=== PATIENT | female | born 1960 | race Caucasian/White ===

== ENCOUNTER 2017-07-04 14:48 | Emergency (ER) | payer MEDICARE ==
[~2017-07-04] VITALS: Ht 167.6 cm; Wt 85.8 kg
[2017-07-04 14:55] VITALS: BP 149/84
[2017-07-04] MEDS ORDERED: SODIUM CHLORIDE 0.9% 1,000ML IVBOLUS ONE (15:30)
[2017-07-04] MEDS ORDERED: SODIUM CHLORIDE FLUSH 10ML SYR IVF ONE (15:30)
[2017-07-04 15:45] LABS: HEMATOCRIT 39.6 % (34.6-47.8); HEMOGLOBIN 13.6 g/dL (11.7-16.4); WHITE BLOOD COUNT 6.7 x10^3/uL (3.4-10)
[2017-07-04 15:56] LABS: BLOOD UREA NITROGEN 19 mg/dL (7-18)
[2017-07-04] MEDS ORDERED: DICYCLOMINE 10 MG/ML, 2ML IM ONE (16:00)
[2017-07-04 16:21] LABS: ASPARTATE AMINO TRANSFERASE 23 U/L (15-37)
[2017-07-04] MEDS ORDERED: ONDANSETRON ODT 4 MG ONE (16:45)
[2017-07-04] MEDS ORDERED: OXYcodone/APAP 5/325MG TABLET ONE ×2 (16:46→16:48)
[2017-07-04] MEDS ORDERED: ONDANSETRON ODT 4 MG PO ONE (17:00)
[2017-07-04] MEDS ORDERED: OXYcodone/APAP 5/325MG TABLET PO ONE ×2 (17:00)
== END 2017-07-04 18:26 | disposition home or self-care (01) ==
LOC: ED 16:30
DX: K59.00 Constipation, unspecified (principal); J45.909 Unspecified asthma, uncomplicated; Z90.710 Acquired absence of both cervix and uterus
CPT/HCPCS: 36415; 74020; 80053; 81003; 84443; 85025; 87324; 89055; 99285; Q0162

== ENCOUNTER 2017-10-21 13:35 | Emergency (ER) | payer MEDICARE ==
[~2017-10-21] VITALS: Ht 167.6 cm; Wt 89.0 kg
[2017-10-21 13:37] VITALS: BP 136/84
[2017-10-21 15:03] LABS: RAPID INFLUENZA A Negative (Negative); RAPID INFLUENZA B Negative (Negative)
[2017-10-21] MEDS ORDERED: SODIUM CHLORIDE 0.9% 1,000ML IVBOLUS ONE (17:30)
[2017-10-21] MEDS ORDERED: METOCLOPRAMIDE 5 MG/ML, 2ML IVPush ONE (17:30)
[2017-10-21] MEDS ORDERED: KETOROLAC 30 MG/1 ML IVPush ONE (17:30)
[2017-10-21] MEDS ORDERED: DIPHENHYDRAMINE 50 MG/ML, 1ML IVPush ONE (17:30)
[2017-10-21] MEDS ORDERED: SODIUM CHLORIDE FLUSH 10ML SYR IVF ONE (17:30)
[2017-10-21] MEDS ORDERED: METOCLOPRAMIDE 5 MG/ML, 2ML ONE (18:04)
[2017-10-21] MEDS ORDERED: KETOROLAC 30 MG/1 ML ONE (18:04)
[2017-10-21] MEDS ORDERED: DIPHENHYDRAMINE 50 MG/ML, 1ML ONE (18:04)
[2017-10-21] MEDS ORDERED: SUMATRIPTAN 6MG/0.5ML SQ ONE ×2 (20:30→20:34)
== END 2017-10-21 21:07 | disposition home or self-care (01) ==
LOC: ED 14:59
DX: G43.911 Migraine, unspecified, intractable, with status migrainosus (principal); J06.9 Acute upper respiratory infection, unspecified; Z87.891 Personal history of nicotine dependence
CPT/HCPCS: 87400; 96372; 96374; 96375; 99284; J1200; J1885; J2765; J3030; J7030

== ENCOUNTER 2018-03-12 14:23 | Observation (INO) | payer MEDICARE ==
[~2018-03-12] VITALS: Ht 167.6 cm; Wt 94.4 kg
[2018-03-12 14:50] LABS: BASOPHILS # (AUTO) 0.02 x10^3/uL (0-0.1); BASOPHILS % (AUTO) 0 % (0-1); EOSINOPHILS # (AUTO) 0.18 x10^3/uL (0-0.4); EOSINOPHILS % (AUTO) 3 % (1-7); LYMPHOCYTES # (AUTO) 2.24 x10^3/uL (1-3.4); LYMPHOCYTES % (AUTO) 32 % (22-44); MD NO; MEAN CORPUSCULAR HEMOGLOBIN 30.2 pg (27.0-34.8); MEAN CORPUSCULAR HGB CONC 34.2 g/dL (32.4-35.8); MEAN CORPUSCULAR VOLUME 88.1 fL (80-100); MEAN PLATELET VOLUME 8.1 fL (7.4-10.4); MONOCYTES # (AUTO) 0.33 x10^3/uL (0.2-0.8); MONOCYTES % (AUTO) 5 % (2-9); NEUTROPHILS # (AUTO) 4.33 x10^3/uL (1.8-6.8); NEUTROPHILS % (AUTO) 61 % (42-75); PLATELET COUNT 247 x10^3/uL (130-400); RED BLOOD COUNT 4.56 x10^6/uL (3.82-5.3); RED CELL DISTRIBUTION WIDTH 12.9 % (9.6-15.2)
[2018-03-12 15:00] LABS: ALBUMIN 3.8 g/dL (3.4-5.0); ANION GAP 8 mmol/L (5-15); CALCIUM 8.7 mg/dL (8.5-10.1); CHLORIDE 112 mmol/L (98-107)
[2018-03-12 15:04] LABS: ALANINE AMINOTRANSFERASE 29 U/L (12-78); ALKALINE PHOSPHATASE 97 U/L (45-117); BILIRUBIN,TOTAL 0.4 mg/dL (0.2-1.0); CREATININE 1.34 mg/dL (0.55-1.02); TOTAL PROTEIN 7.5 g/dL (6.4-8.2)
[2018-03-12] MEDS ORDERED: TOPI100T24 PO (15:08)
[2018-03-12] MEDS ORDERED: TRAZ50TA18 PO (15:09)
[2018-03-12] MEDS ORDERED: RISP4TAB2 PO (15:09)
[2018-03-12] MEDS ORDERED: LEVO25TA4 PO (15:09)
[2018-03-12] MEDS ORDERED: DIAZ5TAB4 PO (15:09)
[2018-03-12] MEDS ORDERED: IBUP200C5 PO (15:10)
[2018-03-12] MEDS ORDERED: OXYC-302 PO (15:10)
[2018-03-12] MEDS ORDERED: PROM12.554 PR (15:11)
[2018-03-12 15:59] LABS: PROTHROMBIN TIME 10.4 Seconds (9.6-11.5)
[2018-03-12] MEDS ORDERED: PROM25TA10 PO (16:24)
[2018-03-12] MEDS ORDERED: MECL12.52 PO (16:24)
[2018-03-12] MEDS ORDERED: VENL37.58 PO (16:49)
[2018-03-12] MEDS ORDERED: OXYC15TA PO (16:49)
[2018-03-12] MEDS ORDERED: ENALAPRILAT 1.25 MG/ML, 2ML IVPush PRN (17:00)
[2018-03-12] MEDS ORDERED: BISACODYL 10 MG SUPP PR PRN (17:00)
[2018-03-12] MEDS ORDERED: ACETAMINOPHEN 325 MG TABLET PO PRN (17:00)
[2018-03-12] MEDS ORDERED: ENOXAPARIN 40 MG/0.4 ML SQ SCH (17:00)
[2018-03-12] MEDS ORDERED: ONDANSETRON ODT 4 MG PO PRN (17:00)
[2018-03-12] MEDS ORDERED: hydrALAzine 20 MG/ML, 1ML IVPush PRN (17:00)
[2018-03-12] MEDS ORDERED: ONDANSETRON 2MG/ML, 2ML IVPush PRN (17:00)
[2018-03-12] MEDS ORDERED: POLYETHYLENE GLYCOL 17 GM PACKET PO PRN (17:00)
[2018-03-12] MEDS ORDERED: MECLIZINE 12.5 MG TABLET PO PRN (18:00)
[2018-03-12] MEDS ORDERED: PROMETHAZINE 25MG TABLET PO PRN (18:00)
[2018-03-12 18:15] LABS: HEMOGLOBIN A1C 5.7 % (4.2-6.3)
[2018-03-12 19:20] VITALS: BP 119/80
[2018-03-12] MEDS ORDERED: TOPIRAMATE 25 MG TABLET ONE (21:10)
[2018-03-12] MEDS: LACTATED RINGERS 1,000 ML IV SCH (21:25)
[2018-03-12] MEDS: TOPIRAMATE 100 MG TABLET PO SCH (21:26)
[2018-03-12] MEDS: TRAZODONE 50MG TABLET PO SCH (21:26)
[2018-03-12] MEDS: DIAZEPAM 5 MG TABLET PO SCH (21:26)
[2018-03-12] MEDS: RISPERIDONE 2 MG TABLET PO SCH (21:26)
[2018-03-12] MEDS: OXYcodone/APAP 10/325MG TABLET PO PRN (21:26)
[2018-03-13 01:08] VITALS: BP 105/64
[2018-03-13] MEDS: LACTATED RINGERS 1,000 ML IV SCH (03:00)
[2018-03-13 04:12] VITALS: BP 119/80
[2018-03-13] MEDS: OXYcodone/APAP 10/325MG TABLET PO PRN ×3 (05:20→20:58)
[2018-03-13 05:44] LABS: BASOPHILS # (AUTO) 0.04 x10^3/uL (0-0.1); BASOPHILS % (AUTO) 1 % (0-1); EOSINOPHILS # (AUTO) 0.23 x10^3/uL (0-0.4); EOSINOPHILS % (AUTO) 4 % (1-7); LYMPHOCYTES % (AUTO) 28 % (22-44); MD NO; MEAN CORPUSCULAR HEMOGLOBIN 29.8 pg (27.0-34.8); MEAN CORPUSCULAR HGB CONC 34.1 g/dL (32.4-35.8); MEAN CORPUSCULAR VOLUME 87.3 fL (80-100); MEAN PLATELET VOLUME 8.3 fL (7.4-10.4); MONOCYTES # (AUTO) 0.39 x10^3/uL (0.2-0.8); MONOCYTES % (AUTO) 6 % (2-9); NEUTROPHILS # (AUTO) 3.92 x10^3/uL (1.8-6.8); NEUTROPHILS % (AUTO) 62 % (42-75); PLATELET COUNT 215 x10^3/uL (130-400); RED BLOOD COUNT 4.48 x10^6/uL (3.82-5.3); RED CELL DISTRIBUTION WIDTH 13.1 % (9.6-15.2)
[2018-03-13 05:47] LABS: CHLORIDE 112 mmol/L (98-107)
[2018-03-13 06:02] LABS: ALANINE AMINOTRANSFERASE 26 U/L (12-78); ALBUMIN 3.5 g/dL (3.4-5.0); ALKALINE PHOSPHATASE 90 U/L (45-117); ANION GAP 9 mmol/L (5-15); BILIRUBIN,TOTAL 0.4 mg/dL (0.2-1.0); CALCIUM 9.4 mg/dL (8.5-10.1); CHOL/HDL RATIO 3.4; CHOLESTEROL, TOTAL 134 mg/dL (140-239); CREATININE 1.42 mg/dL (0.55-1.02); FREE T4 (FREE THYROXINE) 1.08 ng/dL (0.76-1.46); HDL CHOL % 29 % (28-40); HDL CHOLESTEROL (DIRECT) 39 mg/dL (40-60); LDL CHOLESTEROL,CALCULATED 60 mg/dL (54-169); LDL/HDL RATIO 1.5 (0.5-3.0); TOTAL PROTEIN 6.8 g/dL (6.4-8.2); TRIGLYCERIDES 173 mg/dL (50-200); VLDL CHOLESTEROL 35 mg/dL (0-25)
[2018-03-13 06:37] VITALS: BP 130/84
[2018-03-13] MEDS ORDERED: TOPIRAMATE 25 MG TABLET ONE (08:01)
[2018-03-13] MEDS: VENLAFAXINE XR 37.5MG CAP.ER.24H PO SCH (08:11)
[2018-03-13] MEDS: RISPERIDONE 2 MG TABLET PO SCH ×2 (08:12→08:35)
[2018-03-13] MEDS: SENNA/DOCUSATE TABLET PO SCH (08:15)
[2018-03-13] MEDS: TOPIRAMATE 100 MG TABLET PO SCH ×2 (08:31→20:59)
[2018-03-13] MEDS: DIAZEPAM 5 MG TABLET PO SCH ×2 (08:33→20:58)
[2018-03-13] MEDS: LEVOTHYROXINE 25 MCG TABLET PO SCH (08:49)
[2018-03-13 14:59] VITALS: BP 115/72
[2018-03-13] MEDS ORDERED: LIDOCAINE-MPF 1%, 2ML ONE (15:48)
[2018-03-13] MEDS ORDERED: LIDOCAINE 2%, 20ML ONE (17:09)
[2018-03-13] MEDS ORDERED: MECLIZINE 12.5 MG TABLET PO PRN (18:30)
[2018-03-13 18:54] VITALS: BP 116/74
[2018-03-13] MEDS: TRAZODONE 50MG TABLET PO SCH (20:58)
[2018-03-14 00:10] VITALS: BP 109/71
[2018-03-14] MEDS: OXYcodone/APAP 10/325MG TABLET PO PRN ×2 (04:59→13:40)
[2018-03-14] MEDS: LEVOTHYROXINE 25 MCG TABLET PO SCH (05:00)
[2018-03-14 05:37] LABS: CALCIUM 9.3 mg/dL (8.5-10.1); CHLORIDE 112 mmol/L (98-107)
[2018-03-14 05:40] LABS: ANION GAP 9 mmol/L (5-15); CREATININE 1.43 mg/dL (0.55-1.02)
[2018-03-14 08:24] VITALS: BP 112/75
[2018-03-14] MEDS: TOPIRAMATE 100 MG TABLET PO SCH (08:51)
[2018-03-14] MEDS: VENLAFAXINE XR 37.5MG CAP.ER.24H PO SCH (08:51)
[2018-03-14] MEDS: RISPERIDONE 2 MG TABLET PO SCH (08:51)
[2018-03-14] MEDS: SENNA/DOCUSATE TABLET PO SCH (08:52)
[2018-03-14] MEDS: DIAZEPAM 5 MG TABLET PO SCH (08:52)
[2018-03-14 14:30] VITALS: BP 114/79
== END 2018-03-14 16:00 | disposition home or self-care (01) ==
LOC: ED 16:38 → INTOOBSV 16:39 → EDIP 16:39 → ED 16:52 → 4WST 18:45
PROVIDERS: ADMIT Family Medicine; ATTEND Family Medicine
DX: R55 Syncope and collapse (principal); R51 Headache; F31.9 Bipolar disorder, unspecified
CPT/HCPCS: 36415; 62270; 70450; 70544; 71046; 80048; 80053; 80061; 83036; 84439; 84443; 85025; 85610; 85730; 93005; 93306; 93880; 96360; 96361; 97162; 97166; 99285; G0378; G8978; G8979; G8980; J3490; J7120

== ENCOUNTER 2018-04-03 08:12 | Emergency (ER) | payer MEDICARE ==
[~2018-04-03] VITALS: Ht 167.6 cm; Wt 95.0 kg
[~2018-04-03 08:12] MED LIST: DIAZ5TAB4 PO; IBUP200C5 PO; LEVO25TA4 PO; MECL12.52 PO; OXYC-302 PO; OXYC15TA PO; PROM12.554 PR; PROM25TA10 PO; RISP4TAB2 PO; TOPI100T24 PO; TRAZ50TA18 PO; VENL37.58 PO
[2018-04-03] MEDS ORDERED: ASPIRIN 81 MG TABLET CHEW PO ONE (09:00)
[2018-04-03] MEDS ORDERED: ONDANSETRON ODT 4 MG PO ONE (09:00)
[2018-04-03] MEDS ORDERED: ASPIRIN 81 MG TABLET CHEW ONE (09:08)
[2018-04-03] MEDS ORDERED: ONDANSETRON ODT 4 MG ONE (09:08)
[2018-04-03] MEDS ORDERED: LEVO100T5 PO (09:26)
[2018-04-03 09:29] LABS: BASOPHILS # (AUTO) 0.02 x10^3/uL (0-0.1); BASOPHILS % (AUTO) 0 % (0-1); EOSINOPHILS # (AUTO) 0.22 x10^3/uL (0-0.4); EOSINOPHILS % (AUTO) 3 % (1-7); LYMPHOCYTES # (AUTO) 1.64 x10^3/uL (1-3.4); LYMPHOCYTES % (AUTO) 25 % (22-44); MD NO; MEAN CORPUSCULAR HEMOGLOBIN 29.6 pg (27.0-34.8); MEAN CORPUSCULAR HGB CONC 34.1 g/dL (32.4-35.8); MEAN CORPUSCULAR VOLUME 86.6 fL (80-100); MEAN PLATELET VOLUME 8.3 fL (7.4-10.4); MONOCYTES # (AUTO) 0.37 x10^3/uL (0.2-0.8); MONOCYTES % (AUTO) 6 % (2-9); NEUTROPHILS # (AUTO) 4.42 x10^3/uL (1.8-6.8); NEUTROPHILS % (AUTO) 66 % (42-75); PLATELET COUNT 243 x10^3/uL (130-400); RED BLOOD COUNT 4.65 x10^6/uL (3.82-5.3); RED CELL DISTRIBUTION WIDTH 13.2 % (9.6-15.2)
[2018-04-03 09:38] LABS: ALANINE AMINOTRANSFERASE 26 U/L (12-78); ALBUMIN 3.4 g/dL (3.4-5.0); ANION GAP 7 mmol/L (5-15); CHLORIDE 110 mmol/L (98-107)
[2018-04-03 09:43] LABS: ALKALINE PHOSPHATASE 110 U/L (45-117); BILIRUBIN,TOTAL 0.4 mg/dL (0.2-1.0); CREATININE 1.44 mg/dL (0.55-1.02); TOTAL PROTEIN 7.2 g/dL (6.4-8.2); TROPONIN I < 0.015 ng/mL (0.000-0.045)
[2018-04-03] MEDS ORDERED: MORPHINE SULFATE 4 MG/ML, 1ML ONE ×2 (10:11→12:44)
[2018-04-03] MEDS: MORPHINE SULFATE 4 MG/ML, 1ML IVPush PRN ×2 (11:09→12:46)
[2018-04-03 13:20] VITALS: BP 131/77
== END 2018-04-03 14:00 | disposition home or self-care (01) ==
LOC: ED 09:10
DX: R06.00 Dyspnea, unspecified (principal); G43.909 Migraine, unspecified, not intractable, without status migrainosus; Z87.891 Personal history of nicotine dependence
CPT/HCPCS: 36415; 71045; 80053; 83880; 84484; 85025; 85379; 93005; 96374; 96376; 99285; Q0162

== ENCOUNTER 2018-11-09 12:14 | Emergency (ER) | payer MEDICARE ==
[~2018-11-09] VITALS: Ht 167.6 cm; Wt 94.8 kg
[~2018-11-09 12:14] MED LIST changes: +IBUP-1623 PO; -IBUP200C5 PO; +LEVO100T5 PO; -TRAZ50TA18 PO; +TRAZ50TA66 PO
--- NOTE | 2018-11-09 12:21 | NUR ---
PT AMBULATED TO ROOM WITH TECH. STEADY GAIT.
--- NOTE | 2018-11-09 12:23 | NUR ---
PT PRESENTED TO ED D/T LOWER ABD PAIN SINCE YESTERDAY. PT STATES HAVE BEEN DEALING WITH THIS ISSUE FOR A "COUPLE MONTHS NOW." PT STATES INCREASED BLOATING. +N/V/D FOR "MONTHS NOW."
[2018-11-09] MEDS ORDERED: SUCR1TAB PO (12:27)
[2018-11-09] MEDS ORDERED: PANT20TA3 PO (12:27)
--- NOTE | 2018-11-09 12:46 | NUR ---
RN PROVIDED PT WITH URINE COLLECTION CUP. PT TO AMBULATE TO RESTROOM AFTER BLOOD DRAW.
[2018-11-09 12:57] LABS: BASOPHILS # (AUTO) 0.05 x10^3/uL (0-0.1); BASOPHILS % (AUTO) 1 % (0-1); EOSINOPHILS # (AUTO) 0.22 x10^3/uL (0-0.4); EOSINOPHILS % (AUTO) 3 % (1-7); LYMPHOCYTES # (AUTO) 2.63 x10^3/uL (1-3.4); LYMPHOCYTES % (AUTO) 34 % (22-44); MD NO; MEAN CORPUSCULAR HEMOGLOBIN 30.6 pg (27.0-34.8); MEAN CORPUSCULAR HGB CONC 34.2 g/dL (32.4-35.8); MEAN CORPUSCULAR VOLUME 89.6 fL (80-100); MEAN PLATELET VOLUME 7.9 fL (7.4-10.4); MONOCYTES # (AUTO) 0.59 x10^3/uL (0.2-0.8); MONOCYTES % (AUTO) 8 % (2-9); NEUTROPHILS # (AUTO) 4.16 x10^3/uL (1.8-6.8); NEUTROPHILS % (AUTO) 54 % (42-75); PLATELET COUNT 218 x10^3/uL (130-400); RED BLOOD COUNT 4.66 x10^6/uL (3.82-5.3); RED CELL DISTRIBUTION WIDTH 12.4 % (9.6-15.2)
[2018-11-09] MEDS ORDERED: ONDANSETRON 2MG/ML, 2ML ONE (12:58)
[2018-11-09] MEDS ORDERED: MORPHINE SULFATE 4 MG/ML, 1ML ONE (12:58)
[2018-11-09] MEDS ORDERED: FAMOTIDINE 20 MG/2 ML ONE (12:58)
[2018-11-09] MEDS ORDERED: SODIUM CHLORIDE FLUSH 10ML SYR IVF ONE (13:00)
[2018-11-09] MEDS ORDERED: FAMOTIDINE 20 MG/2 ML IVP ONE (13:00)
[2018-11-09] MEDS ORDERED: ONDANSETRON 2MG/ML, 2ML IVPush ONE (13:00)
[2018-11-09] MEDS ORDERED: MORPHINE SULFATE 4 MG/ML, 1ML IVPush PRN (13:00)
[2018-11-09 13:06] LABS: MICROSCOPIC AUTO
[2018-11-09 13:07] LABS: CULTURE INDICATED? YES
[2018-11-09 13:07] LABS: ALANINE AMINOTRANSFERASE 20 U/L (12-78); ALBUMIN 3.5 g/dL (3.4-5.0); ANION GAP 8 mmol/L (5-15); CALCIUM 8.9 mg/dL (8.5-10.1); CHLORIDE 108 mmol/L (98-107); CREATININE 1.42 mg/dL (0.55-1.02)
--- NOTE | 2018-11-09 13:08 | NUR ---
PT MEDICATED FOR 10/10 LOWER ABD PAIN.
[2018-11-09 13:10] LABS: ALKALINE PHOSPHATASE 108 U/L (45-117); BILIRUBIN,TOTAL 0.2 mg/dL (0.2-1.0); TOTAL PROTEIN 7.3 g/dL (6.4-8.2)
[2018-11-09] MEDS ORDERED: OMNIPAQUE 350 MG/ML, 100ML BOTTLE ONE (13:34)
--- NOTE | 2018-11-09 13:34 | NUR ---
PT IN RADIOLOGY.
[2018-11-09 13:57] VITALS: BP 115/69
--- NOTE | 2018-11-09 14:13 | NUR ---
PT BEING DISCHARGED HOME IN A STABLE CONDITION. PIV WAS REMOVED WITH TIP INTACT. DC INSTRUCTIONS WERE DISCUSSED WITH PT. PT VERBALIZED UNDERSTANDING. NO FURTHER QUESTIONS OR CONCERNS WERE EXPRESSED AT THAT TIME. PT AMBULATED WITH RN TO DC DESK. STEADY GAIT.
== END 2018-11-09 14:15 | disposition home or self-care (01) ==
LOC: ED 12:59
DX: G89.29 Other chronic pain (principal); R10.13 Epigastric pain; R10.30 Lower abdominal pain, unspecified; G43.909 Migraine, unspecified, not intractable, without status migrainosus
CPT/HCPCS: 36415; 74177; 80053; 81001; 83690; 85025; 87086; 96374; 96375; 99284; J2405; J3490; Q9967

== ENCOUNTER 2018-12-26 22:02 | Emergency (ER) | payer MEDICARE ==
[~2018-12-26] VITALS: Ht 167.6 cm; Wt 92.0 kg
[~2018-12-26 22:02] MED LIST changes: +PANT20TA3 PO; +SUCR1TAB PO
[2018-12-26 23:24] LABS: BASOPHILS # (AUTO) 0.01 x10^3/uL (0-0.1); BASOPHILS % (AUTO) 0 % (0-1); EOSINOPHILS # (AUTO) 0.22 x10^3/uL (0-0.4); EOSINOPHILS % (AUTO) 4 % (1-7); LYMPHOCYTES % (AUTO) 39 % (22-44); MD NO; MEAN CORPUSCULAR HEMOGLOBIN 31.2 pg (27.0-34.8); MEAN CORPUSCULAR HGB CONC 34.7 g/dL (32.4-35.8); MONOCYTES # (AUTO) 0.33 x10^3/uL (0.2-0.8); MONOCYTES % (AUTO) 5 % (2-9); NEUTROPHILS # (AUTO) 3.33 x10^3/uL (1.8-6.8); NEUTROPHILS % (AUTO) 52 % (42-75); PLATELET COUNT 225 x10^3/uL (130-400); RED BLOOD COUNT 4.41 x10^6/uL (3.82-5.3)
[2018-12-26 23:26] LABS: ALANINE AMINOTRANSFERASE 19 U/L (12-78); ALBUMIN 3.8 g/dL (3.4-5.0); ANION GAP 5 mmol/L (5-15); CALCIUM 8.9 mg/dL (8.5-10.1); CHLORIDE 110 mmol/L (98-107); CREATININE 1.53 mg/dL (0.55-1.02)
[2018-12-26 23:31] LABS: ALKALINE PHOSPHATASE 95 U/L (45-117); BILIRUBIN,TOTAL 0.3 mg/dL (0.2-1.0); TOTAL PROTEIN 7.4 g/dL (6.4-8.2); TROPONIN I < 0.015 ng/mL (0.000-0.045)
[2018-12-26] MEDS ORDERED: KETOROLAC 30 MG/1 ML ONE (23:59)
[2018-12-26] MEDS ORDERED: DIPHENHYDRAMINE 25 MG CAPSULE ONE (23:59)
[2018-12-26] MEDS ORDERED: ONDANSETRON ODT 4 MG ONE (23:59)
[2018-12-27] MEDS ORDERED: KETOROLAC 30 MG/1 ML IM ONE
[2018-12-27] MEDS ORDERED: DIPHENHYDRAMINE 25 MG CAPSULE PO ONE
[2018-12-27] MEDS ORDERED: ONDANSETRON ODT 4 MG PO ONE
[2018-12-27 00:06] VITALS: BP 110/65
== END 2018-12-27 00:08 | disposition home or self-care (01) ==
LOC: ED 23:00
DX: R55 Syncope and collapse (principal); R42 Dizziness and giddiness; G43.909 Migraine, unspecified, not intractable, without status migrainosus; Z87.891 Personal history of nicotine dependence
CPT/HCPCS: 36415; 71045; 80053; 84484; 85025; 93005; 96372; 99284; J1885; Q0162; Q0163

== ENCOUNTER 2019-02-26 11:46 | Emergency (ER) | payer MEDICARE ==
[~2019-02-26] VITALS: Ht 167.6 cm; Wt 96.0 kg
[2019-02-26 11:49] VITALS: BP 145/80
[2019-02-26] MEDS ORDERED: OXYcodone/APAP 5/325MG TABLET ONE (12:56)
[2019-02-26] MEDS ORDERED: OXYcodone/APAP 5/325MG TABLET PO ONE (13:00)
== END 2019-02-26 13:09 | disposition home or self-care (01) ==
LOC: ED 13:03
DX: S83.92XA Sprain of unspecified site of left knee, initial encounter (principal); G43.909 Migraine, unspecified, not intractable, without status migrainosus; Z87.891 Personal history of nicotine dependence; W01.0XXA Fall on same level from slipping, tripping and stumbling without subsequent striking against object, initial encounter; Y93.01 Activity, walking, marching and hiking; Y92.89 Other specified places as the place of occurrence of the external cause; Y99.8 Other external cause status
CPT/HCPCS: 99283

== ENCOUNTER → 2020-03-30 | Outpatient (CLI) | payer MEDICARE ==
[~2020-03-30] MED LIST changes: -MECL12.52 PO; +MECL12.581 PO; -OXYC15TA PO; +OXYC15TA3 PO
== END | disposition home or self-care (01) ==
LOC: RAD 14:37
PROVIDERS: ATTEND Orthopaedic Surgery
DX: M79.662 Pain in left lower leg (principal)

== ENCOUNTER 2020-04-17 14:22 | Outpatient (CLI) | payer MEDICARE ==
[~2020-04-17 14:22] MED LIST changes: -PANT20TA3 PO; +PANT20TA4 PO
== END 2020-04-17 23:59 | disposition home or self-care (01) ==
LOC: RAD 14:22
PROVIDERS: ATTEND Psychiatry & Neurology Neurology
DX: H53.2 Diplopia (principal); R42 Dizziness and giddiness
CPT/HCPCS: 70544

== ENCOUNTER 2020-06-04 19:51 | Emergency (ER) | payer MEDICARE ==
[~2020-06-04] VITALS: Ht 167.6 cm; Wt 97.0 kg
[~2020-06-04 19:51] MED LIST changes: +PANT20TA3 PO; -PANT20TA4 PO
--- NOTE | 2020-06-04 20:03 | NUR ---
EKG DONE IN TRIAGE.
--- NOTE | 2020-06-04 20:42 | NUR ---
FIRST CONTACT WITH PT. PT SITTING UP IN [facility], NAD NOTED. AWAKE/ALERT. PT REPOTS ABD DISTENTION, LLQ ABD "CRAMPING" PAIN, AND CONSTIPATION X FIVE DAYS. HX OF IBS WITH SIMILAR S/S. PT REPORTS CONSTIPATION DESPITE DIET CHANGE, SUPPLEMENTATION, AND ENEMA. ENEMA TODAY WITH SMALL BOWEL MOVEMENT RESULT. PT REPORTS TAKING OPIOIDS REGULARLY FOR CHRONIC BACK PAIN. DENIES CP/SOB/DYSRIA/N/V/FEVER/BLOOD IN EMESIS OR STOOL. BP/SPO2 MONITORING IN PLACE. VS UNREMARKABLE. SO AT BEDSIDE.
--- NOTE | 2020-06-04 21:15 | NUR ---
PT AMBULATED STEADILY TO BATHROOM USING OWN WALKER. UA PROVIDED. AWAITING ERP EVAL AND ORDERS.
[2020-06-04] MEDS ORDERED: SODIUM CHLORIDE FLUSH 10ML SYR IVF ONE (22:00)
[2020-06-04] MEDS ORDERED: METHYLNALTREXONE 12 MG/0.6 ML SYR SQ STA (22:10)
[2020-06-04 22:16] LABS: MICROSCOPIC AUTO
[2020-06-04] MEDS ORDERED: METHYLNALTREXONE 12 MG/0.6 ML SYR SQ ONE (22:20)
[2020-06-04] MEDS ORDERED: HYDROcodone/APAP 5/325 TABLET ONE (22:20)
[2020-06-04] MEDS ORDERED: HYDROcodone/APAP 5/325 TABLET PO ONE (22:30)
[2020-06-04] MEDS ORDERED: ONDANSETRON ODT 4 MG ONE (22:38)
[2020-06-04 22:40] LABS: BASOPHILS # (AUTO) 0.02 x10^3/uL (0-0.1); BASOPHILS % (AUTO) 0 % (0-1); EOSINOPHILS # (AUTO) 0.19 x10^3/uL (0-0.4); EOSINOPHILS % (AUTO) 3 % (1-7); LYMPHOCYTES # (AUTO) 1.73 x10^3/uL (1-3.4); LYMPHOCYTES % (AUTO) 24 % (22-44); MD NO; MEAN CORPUSCULAR HEMOGLOBIN 30.3 pg (27.0-34.8); MEAN CORPUSCULAR HGB CONC 33.6 g/dL (32.4-35.8); MEAN CORPUSCULAR VOLUME 90.3 fL (80-100); MEAN PLATELET VOLUME 7.8 fL (7.4-10.4); MONOCYTES # (AUTO) 0.44 x10^3/uL (0.2-0.8); MONOCYTES % (AUTO) 6 % (2-9); NEUTROPHILS # (AUTO) 4.74 x10^3/uL (1.8-6.8); NEUTROPHILS % (AUTO) 67 % (42-75); PLATELET COUNT 273 x10^3/uL (130-400); RED BLOOD COUNT 4.38 x10^6/uL (3.82-5.3); RED CELL DISTRIBUTION WIDTH 13.9 % (9.6-15.2)
[2020-06-04 22:41] VITALS: BP 143/79
--- NOTE | 2020-06-04 22:41 | NUR ---
PT CO NAUSEA. MEDICATED PER ORDER
[2020-06-04 22:48] LABS: ALANINE AMINOTRANSFERASE 37 U/L (12-78); ALBUMIN 3.6 g/dL (3.4-5.0); ANION GAP 5 mmol/L (5-15); CALCIUM 9.2 mg/dL (8.5-10.1); CHLORIDE 109 mmol/L (98-107); CREATININE 1.01 mg/dL (0.55-1.02)
[2020-06-04 22:51] LABS: ALKALINE PHOSPHATASE 106 U/L (45-117); BILIRUBIN,TOTAL 0.4 mg/dL (0.2-1.0); TOTAL PROTEIN 7.5 g/dL (6.4-8.2)
[2020-06-04] MEDS ORDERED: ONDANSETRON ODT 4 MG PO ONE (23:00)
--- NOTE | 2020-06-04 23:16 | NUR ---
PER [employer] [employer] [facility], DELAY IN XRAY READ XRAY WAS NOT SENT. IMAGE HAS BEEN SENT TO [facility] AT THIS TIME. ERP AWARE.
--- NOTE | 2020-06-05 | NUR ---
PT CO OF CONTINUED PAIN. ERP AWARE. CHART UP FOR RECHECK
--- NOTE | 2020-06-05 00:32 | NUR ---
DC EDUCATION PROVIDED, PT DEMONSTRATES UNDERSTANDING. PT AMBULATED STEADILY TO DC WITH RN USING WALKER. SO TO TRANSPORT PT HOME.
== END 2020-06-05 00:35 | disposition home or self-care (01) ==
LOC: ED 20:11
DX: R10.84 Generalized abdominal pain (principal); K59.00 Constipation, unspecified; M54.5 Low back pain; K58.9 Irritable bowel syndrome, unspecified; R94.31 Abnormal electrocardiogram [ECG] [EKG]
CPT/HCPCS: 36415; 74021; 80053; 81001; 83605; 83690; 85025; 87086; 93005; 96372; 99285; Q0162

== ENCOUNTER 2020-07-06 20:27 | Emergency (ER) | payer MEDICARE ==
[~2020-07-06] VITALS: Ht 167.6 cm; Wt 91.0 kg
[~2020-07-06 20:27] MED LIST changes: -PANT20TA3 PO; +PANT20TA4 PO
--- NOTE | 2020-07-06 20:34 | NUR ---
TASK RN: THIS IS A 59Y F BIB EMS FROM HOME, PT WAS REACHING FOR PLATE AND FELL IN KITCHEN, DENIES LOC, NO THINNERS. PT DID HOWEVER HIT BACK OF HEAD ON THE FLOOR WELL HER BACK. PT HAS HX OF CEREBELLAR DEGENERATION AND WALKS WITH A WALKER AT BASELINE. PT CONNECTED TO MONITORING VSS NADN. ERP AT BEDSIDE
[2020-07-06] MEDS ORDERED: OXYcodone/APAP 5/325MG TABLET ONE (20:46)
[2020-07-06] MEDS ORDERED: OXYcodone/APAP 5/325MG TABLET PO ONE (21:00)
--- NOTE | 2020-07-06 21:30 | NUR ---
PT ADJUSTED IN BED AND ASSISTED ONTO BEDPAN. PT UPDATED ON POC WITH RESULTED CT SCANS BUT WAITING ON XRAYS OF HER LUMBAR SPINE.
[2020-07-06] MEDS ORDERED: FLUT9.9S NS (21:31)
[2020-07-06] MEDS ORDERED: ALBU18HF INH (21:31)
[2020-07-06] MEDS ORDERED: LISI2.5T PO (21:31)
--- NOTE | 2020-07-06 21:53 | NUR ---
REPORT TO JUAN LUIS MELARA.
[2020-07-06 22:32] VITALS: BP 100/52
--- NOTE | 2020-07-06 22:49 | NUR ---
PT ASSISTED TO USE BED AGUILERA AT THIS TIME, PT TOLERATED WELL, REQ MORE PAIN MEDS ERP AWARE
--- NOTE | 2020-07-06 23:39 | NUR ---
Korey regan in [facility] - 07/06/20 at 2339 by [email or web address] RE
--- NOTE | 2020-07-06 23:39 | NUR ---
PT AUBRIE CLARKE TO UPDATE HER, MD VICKIE DOMINGUEZ
== END 2020-07-07 00:51 | disposition home or self-care (01) ==
LOC: ED 23:18
DX: S39.012A Strain of muscle, fascia and tendon of lower back, initial encounter (principal); S16.1XXA Strain of muscle, fascia and tendon at neck level, initial encounter; R51 Headache; Z87.891 Personal history of nicotine dependence; W18.39XA Other fall on same level, initial encounter; Y93.89 Activity, other specified; Y92.098 Other place in other non-institutional residence as the place of occurrence of the external cause; Y99.8 Other external cause status
CPT/HCPCS: 70450; 72110; 72125; 99285

== ENCOUNTER 2020-08-04 02:24 | Emergency (ER) | payer MEDICARE ==
[~2020-08-04] VITALS: Ht 167.6 cm; Wt 94.0 kg
[~2020-08-04 02:24] MED LIST changes: +ALBU18HF INH; +FLUT9.9S NS; +LISI2.5T PO
--- NOTE | 2020-08-04 02:51 | NUR ---
PT TO ED WITH CP STARTING X1 HR AGO, HX OF SAME. PT REPORTS ANGINA GENERALLY ABATES WITHIN A FEW HOURS. PT REPORTS CP WITH BACK PAIN, DENIES RADIATION ELSEWHERE. ALL BACK, CHEST, LEGS AND ABDOMEN TENDER TO PALPATION. PT REPORTS HX OF CHRONIC PAIN. PT CONNECTED TO ALL MONTIORING, EKG DONE IN TRIAGE. CALL LIGHT WITHIN REACH, ALL SAFETY MEASURES IN PLACE. FAMILY AT BS FOR SUPPORT.
[2020-08-04] MEDS ORDERED: ONDANSETRON ODT 4 MG ONE (03:10)
[2020-08-04] MEDS ORDERED: OXYcodone/APAP 5/325MG TABLET ONE (03:11)
[2020-08-04 03:17] LABS: BASOPHILS % (AUTO) 0 % (0-1); EOSINOPHILS % (AUTO) 0 % (1-7); LYMPHOCYTES % (AUTO) 10 % (22-44); MEAN CORPUSCULAR HEMOGLOBIN 29.7 pg (27.0-34.8); MEAN CORPUSCULAR HGB CONC 33.3 g/dL (32.4-35.8); MEAN PLATELET VOLUME 7.8 fL (7.4-10.4); MONOCYTES % (AUTO) 3 % (2-9); NEUTROPHILS % (AUTO) 88 % (42-75); PLATELET COUNT 248 x10^3/uL (130-400); RED BLOOD COUNT 4.47 x10^6/uL (3.82-5.3); RED CELL DISTRIBUTION WIDTH 12.9 % (9.6-15.2)
[2020-08-04 03:18] LABS: MD NO
[2020-08-04 03:30] LABS: ALANINE AMINOTRANSFERASE 19 U/L (12-78); ALBUMIN 3.3 g/dL (3.4-5.0); ANION GAP 7 mmol/L (5-15); CALCIUM 9.3 mg/dL (8.5-10.1); CHLORIDE 109 mmol/L (98-107); CREATININE 1.27 mg/dL (0.55-1.02)
[2020-08-04] MEDS ORDERED: OXYcodone/APAP 5/325MG TABLET PO ONE (03:30)
[2020-08-04] MEDS ORDERED: ONDANSETRON ODT 4 MG PO ONE (03:30)
[2020-08-04 03:35] LABS: ALKALINE PHOSPHATASE 116 U/L (45-117); BILIRUBIN,TOTAL 0.2 mg/dL (0.2-1.0); TOTAL PROTEIN 7.2 g/dL (6.4-8.2); TROPONIN I < 0.015 ng/mL (0.000-0.045)
[2020-08-04 03:42] VITALS: BP 118/61
--- NOTE | 2020-08-04 03:42 | NUR ---
PT RESTING ON FAMILY JENELLE AT FOR SUPPORT. MONITORING IN PLACE, CALL LIGHT WITHIN REACH, ALL SAFETY MEASURES IN PLACE.
== END 2020-08-04 04:26 | disposition home or self-care (01) ==
LOC: ED 04:14
DX: R07.89 Other chest pain (principal); R50.9 Fever, unspecified; M54.5 Low back pain; R05 Cough; R11.0 Nausea; G43.909 Migraine, unspecified, not intractable, without status migrainosus
CPT/HCPCS: 36415; 71045; 80053; 84484; 85025; 93005; 99285; Q0162

== ENCOUNTER 2020-09-21 07:19 | Emergency (ER) | payer MEDICARE ==
[~2020-09-21] VITALS: Ht 167.6 cm; Wt 91.8 kg
[~2020-09-21 07:19] MED LIST changes: -RISP4TAB2 PO; +RISP4TAB66 PO
--- NOTE | 2020-09-21 07:32 | NUR ---
THIS IS A 60 YEAR OLD FEMALE WHO C/O OF INTERMITTENT SHARP LT BREAST PAIN X3 WKS, WORSENING OVER LAST 2-3 DAYS, DENIES INJ OR HX CA
--- NOTE | 2020-09-21 08:22 | NUR ---
PT RECEIVING ULTRASOUND IN ROOM, THIS RN AT BS
[2020-09-21 10:24] VITALS: BP 135/65
--- NOTE | 2020-09-21 10:24 | NUR ---
Patient/Caregiver given discharge instructions and they have confirmed that they understand the instructions. Patient ambulatory with steady gait.
== END 2020-09-21 10:26 | disposition home or self-care (01) ==
LOC: ED 08:08
DX: N64.4 Mastodynia (principal); R06.02 Shortness of breath; M54.5 Low back pain; I10 Essential (primary) hypertension; G43.909 Migraine, unspecified, not intractable, without status migrainosus
CPT/HCPCS: 71045; 76642; 93005; 99284

== ENCOUNTER 2020-09-22 19:18 | Emergency (ER) | payer MEDICARE ==
[~2020-09-22] VITALS: Ht 167.6 cm; Wt 92.0 kg
[2020-09-22 19:21] VITALS: BP 156/87
== END 2020-09-22 21:42 | disposition home or self-care (01) ==
LOC: ED 20:00
DX: S09.90XA Unspecified injury of head, initial encounter (principal); R42 Dizziness and giddiness; I10 Essential (primary) hypertension; G43.909 Migraine, unspecified, not intractable, without status migrainosus; W01.0XXA Fall on same level from slipping, tripping and stumbling without subsequent striking against object, initial encounter; Y93.89 Activity, other specified; Y92.098 Other place in other non-institutional residence as the place of occurrence of the external cause; Y99.8 Other external cause status
CPT/HCPCS: 70450; 72125; 93005; 99285

== ENCOUNTER 2020-12-22 18:55 | Emergency (ER) | payer MEDICARE ==
[~2020-12-22] VITALS: Ht 167.6 cm; Wt 90.0 kg
[~2020-12-22 18:55] MED LIST changes: -MECL12.581 PO; +MECL12.590 PO; -OXYC-302 PO; +OXYC1TAB14 PO
[2020-12-22 18:59] VITALS: BP 133/80
--- NOTE | 2020-12-22 19:09 | NUR ---
BIB [facility] FROM HOME AFTER GLF. PT HIT HEAD, C/O HEREDIA, NECK AND BACK PAIN. RUBBER GOODS TESTER WATER [facility]: C-COLLAR, FSBG 110 PT CONNECTED TO MONITORING. EKG COMPLETE. CALL LIGHT IN REACH.
[2020-12-22] MEDS ORDERED: ACETAMINOPHEN 500 MG TABLET PO ONE (19:30)
[2020-12-22] MEDS ORDERED: ACETAMINOPHEN 500 MG TABLET ONE (19:31)
[2020-12-22] MEDS ORDERED: ONDANSETRON ODT 4 MG ONE (19:38)
[2020-12-22] MEDS ORDERED: ONDANSETRON ODT 4 MG PO ONE (20:00)
--- NOTE | 2020-12-22 20:16 | NUR ---
PT ASSISTED TO BEDSIDE COMMODE.
--- NOTE | 2020-12-22 20:48 | NUR ---
ALL RESULTS ARE BACK AT THIS TIME. CHART UP FOR RECHECK.
== END 2020-12-22 21:32 | disposition home or self-care (01) ==
LOC: ED 21:26
DX: S16.1XXA Strain of muscle, fascia and tendon at neck level, initial encounter (principal); S00.03XA Contusion of scalp, initial encounter; I10 Essential (primary) hypertension; G43.909 Migraine, unspecified, not intractable, without status migrainosus; W01.0XXA Fall on same level from slipping, tripping and stumbling without subsequent striking against object, initial encounter; Y93.89 Activity, other specified; Y92.89 Other specified places as the place of occurrence of the external cause; Y99.8 Other external cause status
CPT/HCPCS: 70450; 72125; 93005; 99285; Q0162

== ENCOUNTER 2021-01-08 16:40 | Emergency (ER) | payer MEDICARE ==
[~2021-01-08] VITALS: Ht 167.6 cm; Wt 87.0 kg
--- NOTE | 2021-01-08 16:56 | NUR ---
BIB [facility] FROM HOME AFTER GLF TRIPPING OVER WALKER THAT CAUGHT ON RUG. PT HIT FACE ON CARPETED FLOOR. SWELLING EVIDENT TO RT CHEEK BONE. CHRONIC VERTIGO. PT TOOK OXYCODONE AT HOME FOR PAIN CONTROL. PT APPEARS SLEEPY IN ED. HX OF CHRONIC SLURRED SPEECH. PT AOX4. REPORTS PAIN DIMINISHED FROM 10/10 TO 8/10 AFTER TAKING HOME MEDICATION. SIDE RAILS UP, CALL LIGHT IN REACH.
[2021-01-08] MEDS ORDERED: SIMV20TA19 PO (17:05)
[2021-01-08] MEDS ORDERED: SUCR1TAB PO (17:05)
[2021-01-08] MEDS ORDERED: OXYC15TA3 PO (17:05)
[2021-01-08] MEDS ORDERED: METO-99 PO (17:05)
[2021-01-08] MEDS ORDERED: AMLO-150 PO (17:05)
[2021-01-08] MEDS ORDERED: CARB200T13 PO (17:05)
[2021-01-08] MEDS ORDERED: OMEPRAZOLE PO (17:05)
[2021-01-08] MEDS ORDERED: TRAZODONE PO (17:05)
--- NOTE | 2021-01-08 17:35 | NUR ---
PT UP TO BEDSIDE COMMODE WITH RN ASSISTANCE. NAD NOTED AT THIS TIME. PT BACK IN BED. RESPIRATIONS EVEN AND UNLABORED ON NC. PILLOW PLACED BEHIND PT'S HEAD AND UNDER PT'S KNEES.
--- NOTE | 2021-01-08 18:39 | NUR ---
PT RETURNED FROM CT. RESTING IN BED, NAD NOTED AT THIS TIME. SIDE RAILS UP, CALL LIGHT IN REACH.
--- NOTE | 2021-01-08 18:45 | NUR ---
PT UP TO BEDSIDE COMMODE WITH RN ASSISTANCE. NAD NOTED. PT REPORT TRYING TO CALL AND UNABLE TO CONTACT HIM FOR RIDE. PT WILL TRY AGAIN.
[2021-01-08 18:46] VITALS: BP 132/69
--- NOTE | 2021-01-08 19:10 | NUR ---
REPORT TO KELTON LOWERY.
== END 2021-01-08 19:28 | disposition home or self-care (01) ==
LOC: ED 19:21
DX: S00.93XA Contusion of unspecified part of head, initial encounter (principal); S00.83XA Contusion of other part of head, initial encounter; S09.90XA Unspecified injury of head, initial encounter; R94.31 Abnormal electrocardiogram [ECG] [EKG]; I10 Essential (primary) hypertension; W18.30XA Fall on same level, unspecified, initial encounter; Y93.89 Activity, other specified; Y92.009 Unspecified place in unspecified non-institutional (private) residence as the place of occurrence of the external cause; Y99.8 Other external cause status
CPT/HCPCS: 70450; 93005; 99284